=== PATIENT | male | born 1940 | race Caucasian/White ===

== ENCOUNTER 2021-07-29 11:27 | Emergency (ER) | payer MEDICARE, BC, SELFPAY ==
[2021-07-29] VITALS (8 sets, daily range): BP systolic 142–176; BP diastolic 79–103; PULSE 84–124; RESP 17; TEMP 36.2; O2SAT 95–96; BMI 31.4
[2021-07-29 12:38] LABS: Appearance Urine UA Turbid; Color Urine UA RED; Culture Indicated Urine Specimen Cultured; RBC Urine >100/HPF (0-5/HPF)
--- NOTE | 2021-07-29 14:18 | DI.CT.S_ITS ---
PROCEDURE: CT KIDNEY URETER BLADDER (KUB) INDICATIONS: hermaturia TECHNIQUE: Axial sections were acquired from the lung bases to the pubic symphysis. Coronal and sagittal reformats were performed. For radiation dose reduction, the following was used: automated exposure control, adjustment of mA and/or kV according to patient size. COMPARISON: None. FINDINGS: Image quality: Excellent. Lung bases: Lung bases are clear. Heart size is normal. Solid organs: Liver: The liver has no mass or intrahepatic biliary ductal dilatation. The portal vein and hepatic veins are patent. Biliary: The gallbladder has no gallstones, pericholecystic fluid, gallbladder wall thickening, or surrounding inflammatory change. Pancreas: The pancreas has no mass or ductal dilatation. There is no surrounding inflammation. Spleen: Normal size. There are no masses. Adrenals: No hypertrophy or nodules. Kidneys/bladder: No obstructive calculus or hydronephrosis. Left peripelvic cysts are noted. Both kidneys have punctate nonobstructive calculi. No obstructive calculi within the ureters are identified. No solid mass. No cystic mass. Peritoneum and bowel: The distal esophagus and stomach are normal. The small bowel has a normal caliber and appearance. The terminal ileum is normal. The large bowel has a normal caliber and appearance. No free fluid or air. Nodes and vessels: No retroperitoneal or mesenteric adenopathy by size criteria. The aorta has atherosclerosis with no aneurysmal dilatation. Miscellaneous: No abdominal wall mass or hernia. PELVIS: Genitourinary: The bladder contains hyperdensity within the lumen, likely clot. A mass is less likely. No bladder wall thickening. The prostate contains multiple radiotherapy seeds. Bones: No suspicious bony lesions. Degenerative changes with no focal abnormality. IMPRESSION: 1. Masslike hypodensity within the bladder measuring 5.0 x 5.5 x 6.3 cm, likely a blood clot, less likely a mass. No other bladder mass is identified. 2. Punctate calcifications in both kidneys which are nonobstructive. No hydroureteronephrosis. 3. Diverticulosis without evidence of diverticulitis. Dictated by: Arun Dyson M.D. on 07/29/2021 at 15:20 Approved by: Arun Dyson M.D. on 07/29/2021 at 15:26
--- NOTE | 2021-07-29 14:36 | ED.MALEGU ---
HPI - Male Genitourinary <MARRY Zamora - Last Filed: 07/29/21 19:27> General Chief complaint: Urogenital-Male Stated complaint: Urinary problem- sent by Rodrigo Time Seen by Provider: 07/29/21 14:09 Source: patient Mode of arrival: Ambulatory History of Present Illness HPI Narrative: This is an 81-year-old female with history of prostate cancer status post urethral strictures who self caths at home approximately 2 times per day and is incontinent at baseline, he presents to the emergency department today after going to would be urology clinic this morning for hematuria and incomplete emptying of his bladder. At the Urology office, Dr. Resendiz was not available, he was seen by EULALIA Deluca where there were multiple attempts at placing a urinary catheter for bladder irrigation and it was quite difficult. Per chart review it appears that patient had [place] catheterization attempts with a 16 [place] catheter, could day, a 22 [place] coude and a 14 [place] coude. No catheter was passable, he had 150 mL in his bladder on bladder scan, he is followed by [facility] and consultation with Dr. Root urology at [facility] recommends attempting a 12 [place] catheter as he has a history of urethral strictures. This was not able to be passed either. Patient self caths at baseline with a 16 [place] catheter. Per chart review, patient has tejal blood coming from his bladder, with large clots and difficulty removing with aspiration from the catheter. Related Data Home Medications Medication Instructions Recorded Confirmed ASCORBIC ACID (VITAMIN C) 1,000 mg PO #0 07/05/12 CA PANTOTHENATE/FOLIC ACID/VIT 1 tab PO QDAY #0 07/05/12 (MULTIVITAMIN) CALCIUM CARBONATE (CALCI-MIX~) 500 mg PO #0 07/05/12 COENZYME Q10/VITAMIN E (CO-Q-10 100 mg PO QDAY #0 07/05/12 100mg) HYDROCODONE/ACETAMINOPHEN 1 cap PO QDAY #0 07/05/12 (Hydrocodon-Acetaminophen 5-500) [SAM MAGNESIUM W/S] #0 07/05/12 aspirin 81 mg chewable tablet 81 mg PO QDAY #0 07/05/12 ropinirole 0.5 mg tablet (Requip) 0.5 mg PO HS #0 07/05/12 Allergies Allergy/AdvReac Type Severity Reaction Status Date / Time No Known Drug Allergies Allergy Verified 07/29/21 12:10 Review of Systems <MARRY Zamora - Last Filed: 07/29/21 19:27> Review of Systems Narrative: General: denies fever, chills, malaise, sweats, fatigue Head/Neck: denies headache, neck pain, dizziness Eyes: denies visual changes, eye pain Cardio: denies chest pain, palpitations, edema Respiratory: denies dyspnea, cough, orthopnea GI: denies abdominal pain, nausea, vomiting, or diarrhea : Endorses tejal hematuria and urinary retention, self catheterization, only able to get tejal blood from catheter, thick blood clots, incontinence is at baseline, MSK: denies joint pain, muscle weakness Skin: denies rash, itching, skin lesions or other Neuro: denies numbness, tingling Patient History <MARRY Zamora - Last Filed: 07/29/21 19:27> Social History Smoking Status: Unknown if ever smoked Smoking Status: Unknown if ever smoked alcohol intake frequency: 0-2 drinks per day Substance Use Type: does not use Exam <MARRY Zamora - Last Filed: 07/29/21 19:27> Narrative Exam Narrative: Independently reviewed vitals signs and nursing notes. General: cooperative, comfortable, patient is an acute distress, well groomed Head: atraumatic, symmetrical facial expressions Neck: supple Eyes: equal round and reactive, EOMI, conjunctiva normal Nose: nares patent, no rhinorrhea Mouth/Throat: moist mucus membranes Cardiovascular: regular rate and rhythm, no peripheral edema, warm extremities Respiratory: normal effort, able to speak in complete sentences, no audible wheezing, stridor, or rales. No retractions or tachypnea. GI: abdomen soft, nontender to palpation, nondistended, no masses, no exquisite tenderness with exam, without guarding or rebound. Suprapubic pressure bladder scan only shows [address] shows 5 x 5.5 x 6.3 cm likely blood clot of hypo dense masslike fluid in the bladder. : Bleeding from the urethral meatus MSK: moves all extremities, neurovascularly intact, no weakness, normal tone Skin: brisk capillary refill, no rash, no erythema Neuro: normal speech and cognition, A&O x3 Psych: mental status is grossly normal, congruent mood, normal affect, pleasant and cooperative Initial Vital Signs Initial Vital Signs: Vital Signs Temperature 97.2 F L 07/29/21 12:05 Pulse Rate 124 H 07/29/21 12:05 Respiratory Rate 17 07/29/21 12:05 Blood Pressure 176/79 H 07/29/21 12:05 Pulse Oximetry 96 07/29/21 12:05 <Shannan Moore DO - Last Filed: 08/05/21 07:36> Initial Vital Signs Initial Vital Signs: Vital Signs Temperature 97.2 F L 07/29/21 12:05 Pulse Rate 124 H 07/29/21 12:05 Respiratory Rate 17 07/29/21 12:05 Blood Pressure 176/79 H 07/29/21 12:05 Pulse Oximetry 96 07/29/21 12:05 Course <MARRY Zamora - Last Filed: 07/29/21 19:27> Course Course Narrative: Multiple consultations have been made, initially patient's PA from Urology [facility] was phoned regarding patient's urethral obstruction/hematuria, she sent the patient here after they were unable to irrigate his bladder clots Orders Ordered: Discontinued Medications Acetaminophen (Acetaminophen 325 Mg Tablet) 975 mg PO NOW ONE Stop: 07/29/21 14:19 Last Admin: 07/29/21 14:39 Dose: 975 mg Documented by: KBROTEM Hydromorphone HCl (Hydromorphone 0.5 Mg Inj) 0.5 mg IV NOW ONE Stop: 07/29/21 15:58 Last Admin: 07/29/21 16:15 Dose: 0.5 mg Documented by: NRHODAVID Hydromorphone HCl (Hydromorphone 0.5 Mg Inj) 0.5 mg IV NOW ONE Stop: 07/29/21 19:31 Last Admin: 07/29/21 19:36 Dose: 0.5 mg Documented by: HGUBERN Sodium Chloride (Normal Saline 0.9%) 500 mls @ 1,000 mls/hr IV BOLUS ONE Stop: 07/29/21 16:26 Last Infusion: 07/29/21 19:17 Dose: 0 mls/hr Documented by: Admin: 07/29/21 16:17 Dose: 1,000 mls/hr Documented by: EARL Ketorolac Tromethamine (Ketorolac 30 Mg/Ml Vial) 15 mg IV NOW ONE Stop: 07/29/21 15:56 Last Admin: 07/29/21 16:14 Dose: 15 mg Documented by: EARL Lidocaine HCl (Lidocaine 2% (Glydo) 6 Ml Gel) 6 ml TOP NOW ONE Stop: 07/29/21 14:23 Last Admin: 07/29/21 14:40 Dose: 6 ml Documented by: DANIELA Oxycodone HCl (Oxycodone Ir 5 Mg Tablet) 5 mg PO NOW ONE Stop: 07/29/21 16:53 Last Admin: 07/29/21 17:13 Dose: 5 mg Documented by: DANIELA Vital Signs Vital signs: Vital Signs - 8 hr 07/29/21 12:05 07/29/21 13:38 07/29/21 13:39 Temperature 97.2 F L Pulse Rate 124 H 121 H 119 H Respiratory Rate 17 Blood Pressure 176/79 H 142/83 H Pulse Oximetry 96 96 95 07/29/21 17:21 07/29/21 17:22 07/29/21 17:30 Temperature Pulse Rate 84 87 85 Respiratory Rate Blood Pressure 173/85 H Pulse Oximetry 95 95 95 07/29/21 19:18 07/29/21 19:19 Temperature Pulse Rate 107 H Respiratory Rate Blood Pressure 169/103 H Pulse Oximetry 96 <Shannan Moore DO - Last Filed: 08/05/21 07:36> Orders Ordered: Discontinued Medications Acetaminophen (Acetaminophen 325 Mg Tablet) 975 mg PO NOW ONE Stop: 07/29/21 14:19 Last Admin: 07/29/21 14:39 Dose: 975 mg Documented by: DANIELA Hydromorphone HCl (Hydromorphone 0.5 Mg Inj) 0.5 mg IV NOW ONE Stop: 07/29/21 15:58 Last Admin: 07/29/21 16:15 Dose: 0.5 mg Documented by: EARL Hydromorphone HCl (Hydromorphone 0.5 Mg Inj) 0.5 mg IV NOW ONE Stop: 07/29/21 19:31 Last Admin: 07/29/21 19:36 Dose: 0.5 mg Documented by: HGNON Sodium Chloride (Normal Saline 0.9%) 500 mls @ 1,000 mls/hr IV BOLUS ONE Stop: 07/29/21 16:26 Last Infusion: 07/29/21 19:17 Dose: 0 mls/hr Documented by: Admin: 07/29/21 16:17 Dose: 1,000 mls/hr Documented by: EARL Ketorolac Tromethamine (Ketorolac 30 Mg/Ml Vial) 15 mg IV NOW ONE Stop: 07/29/21 15:56 Last Admin: 07/29/21 16:14 Dose: 15 mg Documented by: EARL Lidocaine HCl (Lidocaine 2% (Glydo) 6 Ml Gel) 6 ml TOP NOW ONE Stop: 07/29/21 14:23 Last Admin: 07/29/21 14:40 Dose: 6 ml Documented by: DANIELA Oxycodone HCl (Oxycodone Ir 5 Mg Tablet) 5 mg PO NOW ONE Stop: 07/29/21 16:53 Last Admin: 07/29/21 17:13 Dose: 5 mg Documented by: DANIELA Vital Signs Vital signs: Vital Signs - 8 hr 07/29/21 12:05 07/29/21 13:38 07/29/21 13:39 Temperature 97.2 F L Pulse Rate 124 H 121 H 119 H Respiratory Rate 17 Blood Pressure 176/79 H 142/83 H Pulse Oximetry 96 96 95 07/29/21 17:21 07/29/21 17:22 07/29/21 17:30 Temperature Pulse Rate 84 87 85 Respiratory Rate Blood Pressure 173/85 H Pulse Oximetry 95 95 95 07/29/21 19:18 07/29/21 19:19 Temperature Pulse Rate 107 H Respiratory Rate Blood Pressure 169/103 H Pulse Oximetry 96 MDM - Male Genitourinary <MARRY Zamora - Last Filed: 07/29/21 19:27> Lab Data Result diagrams: 07/29/21 16:24 07/29/21 16:24 Labs: Lab Results 07/29/21 07/29/21 07/29/21 Range/Units 12:20 16:24 16:24 WBC 7.2 (4.5-11.0) X10^3/uL RBC 4.21 L (4.5-5.9) X10^6/uL Hgb 13.8 (13.5-17.5) g/dL Hct 39.9 L (41-53) % MCV 94.8 (80-100) fL MCH 32.8 (26-34) PG MCHC 34.6 (30-36) % RDW 13.1 (11.6-14.8) % Plt Count 297 (150-400) X10^3/uL Neut % (Auto) 81.6 H (50-75) % Lymph % (Auto) 11.9 L (25-40) % Jack % (Auto) 5.9 (3-14) % Eos % (Auto) 0.1 L (2-4) % Baso % (Auto) 0.5 (0-2) % Neut # (Auto) 5900 (4096-3562) /uL Lymph # (Auto) 900 L (8676-0024) /uL Jack # (Auto) 400 (0-900) /uL Eos # (Auto) 0 (0-450) /uL Baso # (Auto) 0 (0-100) /uL Sodium 135 L (137-145) mmol/L Potassium 4.3 (3.4-5.1) mmol/L Chloride 104 (98-107) mmol/L Carbon Dioxide 25 (22-32) mmol/L BUN 22 H (9-20) mg/dL Creatinine 1.19 (0.66-1.25) mg/dL Estimated GFR > 60 (>60) mL/min BUN/Creatinine Ratio 18.5 (6-22) Glucose 123 H (80-110) mg/dL Calcium 9.0 (8.4-10.2) mg/dL Total Bilirubin 0.7 (0.2-1.3) mg/dL AST 32 (17-59) IU/L ALT 27 (<50) IU/L Alkaline Phosphatase 66 (38-126) U/L Total Protein 7.5 (6.3-8.2) g/dL Albumin 4.6 (3.5-5.0) g/dL Globulin 2.9 (1.7-4.1) g/dL Albumin/Globulin Ratio 1.6 (1.0-2.8) Urine Color Red Urine Appearance Turbid Urine pH TNP Ur Specific [place] TNP Urine Protein TNP Urine Glucose (UA) TNP Urine Ketones TNP Urine Occult Blood TNP Urine Nitrate TNP Urine Bilirubin TNP Urine Urobilinogen TNP Ur Leukocyte Esterase TNP Urine RBC >100/hpf H (0-5/HPF) Urine WBC TNP Urine Bacteria TNP Ur Culture Indicated? Specimen cultured SARS-CoV-2 (PCR) (Negative) 07/29/21 Range/Units 16:27 WBC (4.5-11.0) X10^3/uL RBC (4.5-5.9) X10^6/uL Hgb (13.5-17.5) g/dL Hct (41-53) % MCV (80-100) fL MCH (26-34) PG MCHC (30-36) % RDW (11.6-14.8) % Plt Count (150-400) X10^3/uL Neut % (Auto) (50-75) % Lymph % (Auto) (25-40) % Jack % (Auto) (3-14) % Eos % (Auto) (2-4) % Baso % (Auto) (0-2) % Neut # (Auto) (2847-8285) /uL Lymph # (Auto) (7536-6336) /uL Jack # (Auto) (0-900) /uL Eos # (Auto) (0-450) /uL Baso # (Auto) (0-100) /uL Sodium (137-145) mmol/L Potassium (3.4-5.1) mmol/L Chloride (98-107) mmol/L Carbon Dioxide (22-32) mmol/L BUN (9-20) mg/dL Creatinine (0.66-1.25) mg/dL Estimated GFR (>60) mL/min BUN/Creatinine Ratio (6-22) Glucose (80-110) mg/dL Calcium (8.4-10.2) mg/dL Total Bilirubin (0.2-1.3) mg/dL AST (17-59) IU/L ALT (<50) IU/L Alkaline Phosphatase (38-126) U/L Total Protein (6.3-8.2) g/dL Albumin (3.5-5.0) g/dL Globulin (1.7-4.1) g/dL Albumin/Globulin Ratio (1.0-2.8) Urine Color Urine Appearance Urine pH Ur Specific [place] Urine Protein Urine Glucose (UA) Urine Ketones Urine Occult Blood Urine Nitrate Urine Bilirubin Urine Urobilinogen Ur Leukocyte Esterase Urine RBC (0-5/HPF) Urine WBC Urine Bacteria Ur Culture Indicated? SARS-CoV-2 (PCR) Negative (Negative) Imaging Data CT scan - abdomen/pelvis: Radiologist's Impression: PROCEDURE:? CT KIDNEY URETER BLADDER (KUB) ? INDICATIONS:? hermaturia ? TECHNIQUE:? Axial sections were acquired from the lung bases to the pubic symphysis.? Coronal and sagittal reformats were performed.? For radiation dose reduction, the following was used: ?automated exposure control, adjustment of mA and/or kV according to patient size.? ? COMPARISON:? None. ? FINDINGS: Image quality:? Excellent.? ? Lung bases:? Lung bases are clear.? Heart size is normal. ? Solid organs:? Liver: The liver has no mass or intrahepatic biliary ductal dilatation. The portal vein and hepatic veins are patent. Biliary: The gallbladder has no gallstones, pericholecystic fluid, gallbladder wall thickening, or surrounding inflammatory change. Pancreas: The pancreas has no mass or ductal dilatation. There is no surrounding inflammation. Spleen: Normal size. There are no masses. Adrenals: No hypertrophy or nodules. Kidneys/bladder: No obstructive calculus or hydronephrosis.? Left peripelvic cysts are noted.? Both kidneys have punctate nonobstructive calculi.? No obstructive calculi within the ureters are identified.? No solid mass. No cystic mass.? ? Peritoneum and bowel:? The distal esophagus and stomach are normal.? The small bowel has a normal caliber and appearance. The terminal ileum is normal. The large bowel has a normal caliber and appearance.? No free fluid or air.? ? Nodes and vessels:? No retroperitoneal or mesenteric adenopathy by size criteria.? The aorta has atherosclerosis with no aneurysmal dilatation.? ? Miscellaneous:? No abdominal wall mass or hernia. ? PELVIS:? Genitourinary:? The bladder contains hyperdensity within the lumen, likely clot.? A mass is less likely.? No bladder wall thickening.? The prostate contains multiple radiotherapy seeds. ? Bones:? No suspicious bony lesions.? Degenerative changes with no focal abnormality. ? IMPRESSION: 1. Masslike hypodensity within the bladder measuring 5.0 x 5.5 x 6.3 cm, likely a blood clot, less likely a mass.? No other bladder mass is identified. 2. Punctate calcifications in both kidneys which are nonobstructive.? No hydroureteronephrosis. 3. Diverticulosis without evidence of diverticulitis.? Dictated by: Arun Dyson M.D. on 07/29/2021 at 15:20 ? ? Approved by: Arun Dyson M.D. on 07/29/2021 at 15:26 ? MDM Narrative Medical decision making narrative: This is an 81-year-old male with history of prostate cancer and urethral stricture who presents to the emergency department after going to the [facility] urology clinic with acute onset of hematuria this morning. Patient went to his urologist-Dr. Tata Resendiz's office for evaluation of his hematuria. Patient states that he strenuous physical exertion yesterday moving over 100 lb rocks, laying out gravel, and he noticed hematuria when he self caths himself. Patient self caths at baseline approximately 2 times per day. Patient states he has had hematuria before when his urethra/prostate are irritated from cathing. Patient states today it is tejal blood, there multiple attempts at urethral catheterization made at [facility] by his PA Chary with a 12, 16, 14 [place] catheters/coudes which were unsuccessful attempts. Patient endorses there was catheterization with a 16 [place] coude and irrigation at times were successful at removing multiple large clots but was frequently occluded by further clot. Rodrigo sent the patient to [facility] for urethral catheterization and bladder irrigation for hematuria. On arrival, patient states he has been self cathing every 20 minutes due to his pelvic pressure and increased pain. He states that he has tejal blood coming from his bladder every time he catheterizes it. Multiple attempts at placing a catheter were made which were unsuccessful, a final attempt made by the bedside arm with a [address] [place] two [address] catheter without a q.day was successful. Frequent manipulation of the catheter is necessary due to a large masslike hypodensity in the bladder measuring 5 x 5.5 x 6.[address] cm on abdomen pelvis CT. No other bladder mass is identified, is likely a blood clot, there are also punctate calcifications noted in both kidneys which are nonobstructive without hydroureter nephrosis. Patient also had diverticulosis without evidence of diverticulitis. On lab work, patient does not have any leukocytosis, his hemoglobin is 13.8, hematocrit 39.9, creatinine is 1.19, GFR over 60 with BUN creatinine ratio of 18.5. BUN is 22 without any priors to compare to. Urine shows tejal blood. Multiple consultations have been made 1st with EULALIA at his urologist office to consult [facility] over at [place]. [place] did not have any beds and we were unable to transfer him there for emergent cystoscopy and bladder irrigation. Consult with Dr. Mansfield from urology was july, they accept patient for admission for surgical intervention. Patient has been NPO today, he had breakfast early this morning, has not had any food or drink since. Patient was given 500 mL of normal saline, has had approximately 200 mls of urine output/blood. Spoke with Aleksandra from the transfer center, Aleksandra and Dr. Mansfield except patient for emergent transfer via ALS to the emergency department for urgent cystoscopy and bladder irrigation. <Shannan Moore, DO - Last Filed: 08/05/21 07:36> Lab Data Labs: Lab Results 07/29/21 07/29/21 07/29/21 Range/Units 12:20 16:24 16:24 WBC 7.2 (4.5-11.0) X10^3/uL RBC 4.21 L (4.5-5.9) X10^6/uL Hgb 13.8 (13.5-17.5) g/dL Hct 39.9 L (41-53) % MCV 94.8 (80-100) fL MCH 32.8 (26-34) PG MCHC 34.6 (30-36) % RDW 13.1 (11.6-14.8) % Plt Count 297 (150-400) X10^3/uL Neut % (Auto) 81.6 H (50-75) % Lymph % (Auto) 11.9 L (25-40) % Jack % (Auto) 5.9 (3-14) % Eos % (Auto) 0.1 L (2-4) % Baso % (Auto) 0.5 (0-2) % Neut # (Auto) 5900 (1027-2366) /uL Lymph # (Auto) 900 L (2323-6800) /uL Jack # (Auto) 400 (0-900) /uL Eos # (Auto) 0 (0-450) /uL Baso # (Auto) 0 (0-100) /uL Sodium 135 L (137-145) mmol/L Potassium 4.3 (3.4-5.1) mmol/L Chloride 104 (98-107) mmol/L Carbon Dioxide 25 (22-32) mmol/L BUN 22 H (9-20) mg/dL Creatinine 1.19 (0.66-1.25) mg/dL Estimated GFR > 60 (>60) mL/min BUN/Creatinine Ratio 18.5 (6-22) Glucose 123 H (80-110) mg/dL Calcium 9.0 (8.4-10.2) mg/dL Total Bilirubin 0.7 (0.2-1.3) mg/dL AST 32 (17-59) IU/L ALT 27 (<50) IU/L Alkaline Phosphatase 66 (38-126) U/L Total Protein 7.5 (6.3-8.2) g/dL Albumin 4.6 (3.5-5.0) g/dL Globulin 2.9 (1.7-4.1) g/dL Albumin/Globulin Ratio 1.6 (1.0-2.8) Urine Color Red Urine Appearance Turbid Urine pH TNP Ur Specific [place] TNP Urine Protein TNP Urine Glucose (UA) TNP Urine Ketones TNP Urine Occult Blood TNP Urine Nitrate TNP Urine Bilirubin TNP Urine Urobilinogen TNP Ur Leukocyte Esterase TNP Urine RBC >100/hpf H (0-5/HPF) Urine WBC TNP Urine Bacteria TNP Ur Culture Indicated? Specimen cultured SARS-CoV-2 (PCR) (Negative) 07/29/21 Range/Units 16:27 WBC (4.5-11.0) X10^3/uL RBC (4.5-5.9) X10^6/uL Hgb (13.5-17.5) g/dL Hct (41-53) % MCV (80-100) fL MCH (26-34) PG MCHC (30-36) % RDW (11.6-14.8) % Plt Count (150-400) X10^3/uL Neut % (Auto) (50-75) % Lymph % (Auto) (25-40) % Jack % (Auto) (3-14) % Eos % (Auto) (2-4) % Baso % (Auto) (0-2) % Neut # (Auto) (2393-1835) /uL Lymph # (Auto) (7777-3335) /uL Jack # (Auto) (0-900) /uL Eos # (Auto) (0-450) /uL Baso # (Auto) (0-100) /uL Sodium (137-145) mmol/L Potassium (3.4-5.1) mmol/L Chloride (98-107) mmol/L Carbon Dioxide (22-32) mmol/L BUN (9-20) mg/dL Creatinine (0.66-1.25) mg/dL Estimated GFR (>60) mL/min BUN/Creatinine Ratio (6-22) Glucose (80-110) mg/dL Calcium (8.4-10.2) mg/dL Total Bilirubin (0.2-1.3) mg/dL AST (17-59) IU/L ALT (<50) IU/L Alkaline Phosphatase (38-126) U/L Total Protein (6.3-8.2) g/dL Albumin (3.5-5.0) g/dL Globulin (1.7-4.1) g/dL Albumin/Globulin Ratio (1.0-2.8) Urine Color Urine Appearance Urine pH Ur Specific [place] Urine Protein Urine Glucose (UA) Urine Ketones Urine Occult Blood Urine Nitrate Urine Bilirubin Urine Urobilinogen Ur Leukocyte Esterase Urine RBC (0-5/HPF) Urine WBC Urine Bacteria Ur Culture Indicated? SARS-CoV-2 (PCR) Negative (Negative) MDM Narrative Medical decision making narrative: This is an 81-year-old male with history of prostate cancer and urethral stricture who presents to the emergency department after going to the [facility] urology clinic with acute onset of hematuria this morning. Patient went to his urologist-Dr. Tata Resendiz's office for evaluation of his hematuria. Patient states that he strenuous physical exertion yesterday moving over 100 lb rocks, laying out gravel, and he noticed hematuria when he self caths himself. Patient self caths at baseline approximately 2 times per day. Patient states he has had hematuria before when his urethra/prostate are irritated from cathing. Patient states today it is tejal blood, there multiple attempts at urethral catheterization made at [facility] by his PA Chary with a 12, 16, 14 [place] catheters/coudes which were unsuccessful attempts. Patient endorses there was catheterization with a 16 [place] coude and irrigation at times were successful at removing multiple large clots but was frequently occluded by further clot. Rodrigo sent the patient to [facility] for urethral catheterization and bladder irrigation for hematuria. On arrival, patient states he has been self cathing every 20 minutes due to his pelvic pressure and increased pain. He states that he has tejal blood coming from his bladder every time he catheterizes it. Multiple attempts at placing a catheter were made which were unsuccessful, a final attempt made by the bedside arm with a 16 [place] two way catheter without a q.day was successful. Frequent manipulation of the catheter is necessary due to a large masslike hypodensity in the bladder measuring 5 x 5.5 x 6.3 cm on abdomen pelvis CT. No other bladder mass is identified, is likely a blood clot, there are also punctate calcifications noted in both kidneys which are nonobstructive without hydroureter nephrosis. Patient also had diverticulosis without evidence of diverticulitis. On lab work, patient does not have any leukocytosis, his hemoglobin is 13.8, hematocrit 39.9, creatinine is 1.19, GFR over 60 with BUN creatinine ratio of 18.5. BUN is 22 without any priors to compare to. Urine shows tejal blood. Multiple consultations have been made 1st with EULALIA at his urologist office to consult [facility] over at [place]. [place] did not have any beds and we were unable to transfer him there for emergent cystoscopy and bladder irrigation. Consult with Dr. Mansfield from urology was july, they accept patient for admission for surgical intervention. Patient has been NPO today, he had breakfast early this morning, has not had any food or drink since. Patient was given 500 mL of normal saline, has had approximately 200 mls of urine output/blood. Spoke with Aleksandra from the transfer center, Aleksandra and Dr. Mansfield accept patient for emergent transfer via ALS to the emergency department for urgent cystoscopy and bladder irrigation. Discharge Plan Departure Patient Disposition: [facility] Clinical Impression: Blood clot in bladder, Acute urethral obstruction, History of urethral stricture Hematuria Qualifiers: Hematuria type: gross Qualified Code(s): R31.0 - Gross hematuria Activity Restrictions/Additional Instructions: *You have been diagnosed with acute urethral obstruction/bladder obstruction with a large clot in the bladder. *What to do: *Please continue to take your regular medications as directed. [ ] New medication prescriptions sent to your pharmacy: [ ] [ ] New medication written as a paper prescription [ ] No new medications given *Please follow up with your primary care provider in 2-3 days, call for an appointment. Let them know you were seen in the Emergency Department and that we asked that you be seen for follow-up. We will electronically transmit a record of today's note if your PCP is in our system *If you do not have a primary care provider please contact [phone] to establish care with one of the [facility] primary care providers. *Return to Emergency Department if you should have any new, worsening or concerning symptoms, such as [fever greater than 101F, chills, worsening pain, persistent vomiting or other bothersome symptoms] Prescriptions: No Action ropinirole [Requip] 0.5 MG tablet 0.5 mg PO HS Qty: 0 0RF HYDROCODONE/ACETAMINOPHEN (Hydrocodon-Acetaminophen 5-500) 1 cap PO QDAY Qty: 0 0RF CA PANTOTHENATE/FOLIC ACID/VIT (MULTIVITAMIN) 1 tab PO QDAY Qty: 0 0RF COENZYME Q10/VITAMIN E (CO-Q-10 100mg) 100 mg PO QDAY Qty: 0 0RF aspirin 81 MG tablet,chewable 81 mg PO QDAY Qty: 0 0RF [JIGSAW MAGNESIUM W/S] Qty: 0 0RF ASCORBIC ACID (VITAMIN C) 1,000 mg PO Qty: 0 0RF CALCIUM CARBONATE (CALCI-MIX~) 500 mg PO Qty: 0 0RF Referrals: Paige Espinal MD [Primary Care Provider] - <Shannan Moore DO - Last Filed: 08/05/21 07:36> Cosign ED Attending Brayanature Attestation: I was immediately available in the department for consultation, case reviewed with myself as well as imaging and labs. Unable to obtain catheterization. The chart has been reviewed.
[2021-07-29] MEDS: ACETAMINOPHEN 325 MG TABLET 975 MG PO (14:39)
[2021-07-29] MEDS: LIDOCAINE 2% (GLYDO) 6 ML GEL TOP (14:40)
--- NOTE | 2021-07-29 15:17 | PC.NURSE ---
Unable to insert urinary catheter. Resistance met,only blood coming out
[2021-07-29] MEDS: KETOROLAC 30 MG/ML VIAL 15 MG IV (16:14)
[2021-07-29] MEDS: HYDROMORPHONE 0.5 MG INJ IV ×2 (16:15→19:36)
[2021-07-29] MEDS: SODIUM CHLORIDE 0.9% 500 ML 1000 ML IV (16:17)
[2021-07-29 16:36] LABS: Add Manual Diff / Slide Review NO; Basophils Absolute Auto 0 /uL (0-100); Basophils Percent Auto 0.5 % (0-2); Eosinophils Absolute Auto 0 /uL (0-450); Eosinophils Percent Auto 0.1 % (2-4); Hematocrit 39.9 % (41-53); Hemoglobin 13.8 g/dL (13.5-17.5); Lymphocytes Absolute Auto 900 /uL (1100-4500); Lymphocytes Percent Auto 11.9 % (25-40); Mean Corpuscular HGB Conc 34.6 % (30-36); Mean Corpuscular Hemoglobin 32.8 PG (26-34); Mean Corpuscular Volume 94.8 fL (80-100); Monocytes Absolute Auto 400 /uL (0-900); Monocytes Percent Auto 5.9 % (3-14); Neutrophils Absolute Auto 5900 /uL (1500-7000); Neutrophils Percent Auto 81.6 % (50-75); Platelet Count 297 X10^3/uL (150-400); Red Blood Cell Count 4.21 X10^6/uL (4.5-5.9); Red Cell Distribution Width 13.1 % (11.6-14.8); White Blood Cell Count 7.2 X10^3/uL (4.5-11.0)
[2021-07-29 16:54] LABS: Alanine Aminotransferase 27 IU/L (<50); Albumin 4.6 g/dL (3.5-5.0); Albumin Globulin Ratio 1.6 (1.0-2.8); Alkaline Phosphatase 66 U/L (38-126); Aspartate Aminotransferase 32 IU/L (17-59); BUN Creatinine Ratio 18.5 (6-22); Bilirubin Total 0.7 mg/dL (0.2-1.3); Blood Urea Nitrogen 22 mg/dL (9-20); Carbon Dioxide 25 mmol/L (22-32); Chloride 104 mmol/L (98-107); Estimated Glomerular Filt Rate > 60 mL/min (>60); Globulin 2.9 g/dL (1.7-4.1); Glucose 123 mg/dL (80-110); HEMOLYSIS 20 (0-50); Potassium 4.3 mmol/L (3.4-5.1); Sodium 135 mmol/L (137-145); Total Protein 7.5 g/dL (6.3-8.2)
[2021-07-29] MEDS: OXYCODONE IR 5 MG TABLET PO (17:13)
[2021-07-29 17:18] LABS: COVID19 -Nasal RAPID Negative (Negative)
== END 2021-07-29 19:30 | disposition short-term general hospital (02) ==
PROVIDERS: Emergency Medicine; Emergency Provider Nurse Practitioner Critical Care Medicine; Family Provider Internal Medicine; PCP Internal Medicine; Referring Provider Urology
DX: N32.89 Other specified disorders of bladder (principal); N36.8 Other specified disorders of urethra; R31.0 Gross hematuria; Z87.448 Personal history of other diseases of urinary system
CPT/HCPCS: 36415; 74176; 80053; 81001; 85025; 87086; 87635; 96361; 96374; 96375; 96376; 99284; C9803; J1170; J1885